=== PATIENT | female | born 1995 | race Hispanic/Latino ===

== ENCOUNTER 2016-06-26 21:20 | Emergency (ER) | payer MEDICAID ==
[2016-06-26 22:29] LABS: Urine Drugs of Abuse Note Disclamer
--- NOTE | 2016-06-26 22:41 | Emergency Department Report ---
HPI - General Chief Complaint: Psych Time Seen by Provider: 06/26/16 22:19 - HPI HPI: The patient is a 20-year-old female who presents for evaluation of mental health. The patient reports constant and severe depression for the past one day , exacerbated by confrontation with caregiver, and associated with suicidal ideation. She reports thoughts of hanging herself and burning down the home that she lives in. The patient denies fever, headache, unexplained weight loss or weight gain, heat or cold intolerance, skin, hair, or nail changes, neuro deficits, homicidal ideations, or auditory or visual hallucinations. ED Past Medical Hx - Past Medical History Hx Psychiatric Treatment: Yes (depression) Hx Asthma: Yes (childhood) Additional medical history: autism. bipolar. intellectual disability. PTSD. impulse control disorder - Surgical History Additional Surgical History: right foot surgery` - Social History Smoking Status: Unknown if ever smoked Substance Use Type: None - Medications Home Medications: Home Medications Medication Instructions Recorded Confirmed Last Taken Type HYDROcodone/APAP 7.5-325 [[place] 1 each PO Q8HR PRN #15 tablet 05/04/16 Unknown Rx 7.5-325 mg TAB] Levofloxacin [Levaquin TAB] 750 mg PO QDAY #10 tablet 05/04/16 Unknown Rx Ondansetron [Zofran TAB] 4 mg PO Q8HR PRN #20 tablet 05/04/16 Unknown Rx ED Review of Systems ROS: Stated complaint: MH EVAL/SUICIDAL Other details as noted in HPI Constitutional: denies: fever ENT: denies: throat or neck pain Respiratory: denies: cough, shortness of breath Cardiovascular: denies: chest pain Endocrine: denies unexplained weight loss or gain Gastrointestinal: denies: abdominal pain, nausea Genitourinary: denies: dysuria Musculoskeletal: denies: leg swelling Skin: denies: rash Neurological: denies: headache Hematological/Lymphatic: denies: easy bleeding or easy bruising Psych: reports sadness and SI Physical Exam - Physical Exam Vital Signs: Vital Signs 06/26/16 22:10 Temperature 99.8 F H Pulse Rate 96 H Respiratory 18 Rate Blood Pressure 122/77 O2 Sat by Pulse 100 Oximetry Physical Exam: General: well-nourished, well-developed, no acute distress Head: Normocephalic, atraumatic Eyes: normal sclera ENT: Mucous membranes are pink and moist Neck: trachea midline, neck supple, No neck stiffness, no cervical adenopathy Respiratory: Breath sounds equal bilaterally, no wheezing, rales, or rhonchi Cardio: S1 and S2 present, no murmurs, rubs, gallops, capillary refill is brisk Abdomen: Normoactive bowel sounds, soft abdomen, no tenderness Chest WALL/Back: No tenderness to palpation of the chest wall, no CVA tenderness with percussion Musc: No pitting edema Skin: No rash Neuro: no facial drooping, normal speech Psych: flat affect, poor insight, positive SI ED Course Vital Signs 06/26/16 22:10 Temperature 99.8 F H Pulse Rate 96 H Respiratory 18 Rate Blood Pressure 122/77 O2 Sat by Pulse 100 Oximetry ED Medical Decision Making - Lab Data Result diagrams: 06/26/16 22:59 06/26/16 22:59 - Medical Decision Making The patient was seen and examined by myself. The patient is placed on a language specialist and continuous pulse ox. On initial evaluation, the patient was found to be in no distress. Labs are obtained. Lab results reveals contaminated urinalysis sample, and otherwise labs are grossly unremarkable. As patient has no symptoms of urinary tract infection, she will not be treated for findings of contaminated urinalysis sample. The patient is medically clear. Mental health is consulted. Mental health evaluates the patient and agrees that the patient is at risk of harm to self. A 1013 is completed. The patient will be admitted to a psychiatric facility once bed placement is obtained. Critical care attestation.: If time is entered above; I have spent that time in minutes in the direct care of this critically ill patient, excluding procedure time. ED Disposition Clinical Impression: Suicidal ideation Disposition: DC/TX PSY HOSP/PSY UNIT Is pt being admited?: No Does the pt Need Aspirin: No Condition: Stable Referrals: PRIMARY CARE, [Primary Care Provider] - 3-5 Days Time of Disposition: 22:40
[2016-06-26 22:54] LABS: Bilirubin,Urine NEG (Negative); Blood,Urine NEG (Negative); Ketones,Urine NEG (Negative); Leukocyte Esterase,Urine LG (Negative); Mucus,Urine FEW /HPF; Nitrite,Urine NEG (Negative); Protein,Urine <15 mg/dL mg/dL (Negative); Urobilinogen,Urine < 2.0 mg/dL (<2.0)
[2016-06-26 23:19] LABS: Basophils % (Auto) 0.3 % (0.0-1.8); Eosinophils % (Auto) 2.4 % (0.0-4.3); Hematocrit 34.1 % (30.3-42.9); Hemoglobin 11.6 gm/dl (10.1-14.3); Mean Corpuscular HGB Conc 34 % (30-34); Mean Corpuscular Hemoglobin 31 pg (28-32); Mean Corpuscular Volume 93 fl (79-97); Platelet Count 167 K/mm3 (140-440); Red Blood Count 3.69 M/mm3 (3.65-5.03); Red Cell Distribution Width 13.6 % (13.2-15.2); White Blood Count 6.4 K/mm3 (4.5-11.0)
[2016-06-26 23:34] LABS: BUN/Creatinine Ratio 11.66; Blood Urea Nitrogen 7 mg/dL (7-17); Calcium 8.6 mg/dL (8.4-10.2); Carbon Dioxide 22 mmol/L (22-30); Chloride 103.5 mmol/L (98-107); Glucose 95 mg/dL (65-100); Potassium 3.6 mmol/L (3.6-5.0); Sodium 140 mmol/L (137-145)
[2016-06-26 23:48] LABS: Anion Gap 18 mmol/L
[2016-06-27] MEDS ORDERED: TYLENOL PO PRN (02:02)
[2016-06-27] MEDS ORDERED: MILK OF MAGNESIA PO PRN (02:02)
[2016-06-27] MEDS ORDERED: ALUM-MAG HYDROX-SIMETH 200-200-20MG/5ML PO PRN (02:02)
--- NOTE | 2016-06-27 10:36 | Event Note ---
Date: 06/27/16 Nursing notes and vital signs reviewed. Patient is stable and awaiting placement.
[2016-06-27 17:17] VITALS: BP 134/76
== END 2016-06-27 17:17 ==
LOC: EEVIPCON 21:20 → ED 21:20
DX: R45.851 Suicidal ideations (principal); J45.909 Unspecified asthma, uncomplicated; F31.9 Bipolar disorder, unspecified
CPT/HCPCS: 36415; 80048; 80307; 81001; 81025; 85025; 99285; G0480; 80320